=== PATIENT | female | born 1940 | race Caucasian/White ===

== ENCOUNTER 2016-08-28 19:52 | Inpatient (IN) | payer OTHER ==
[~2016-08-28] VITALS: Ht 167.6 cm; Wt 106.0 kg
[~2016-08-28 19:52] MED LIST: ALLEGRA180 MG PO; AMARYL4 MG PO; CITALOPRAM HBR40 MG PO; CLONAZEPAM1 MG PO; COUMADIN6 MG PO; FLONASE16 G1 BOTH NARES; K-DUR20 MEQ PO; LASIX80 MG PO; LOVASTATIN40 MG PO; MOBIC7.5 MG PO; MONOPRIL40 MG PO; PROTONIX40 MG PO; TIZANIDINE HCL4 MG PO; ULTRAM50 MG PO; WELLBUTRIN XL300 MG PO
[2016-08-28 21:10] LABS: HEMATOCRIT 47.7 % (36.0-46.0); MCH 29.2 PG (29.0-34.0); MCHC 33.1 G/DL (30.0-36.0); MEAN PLAT.VOLUME 10.3 uM^3 (9.5-12.4); PLATELET COUNT 342 K/uL (156-360); RBC DIS.WIDTH-CV 12.8 % (11.8-14.6); RBC DIS.WIDTH-SD 41.6 % (39-53); RED BLOOD COUNT 5.42 M/uL (3.80-5.20); WHITE BLOOD COUNT 11.5 K/uL (4.1-10.2)
[2016-08-28 21:36] LABS: PTT 52.8 (25-32)
[2016-08-28 21:43] LABS: INTER. NORMALIZED RATIO 5.8; PROTHROMBIN TIME 62.7 (9.2-11.2)
[2016-08-28 21:46] LABS: TROP-I INTERPRETATION NEGATIVE; TROPONIN-I < 0.01 ng/mL (0.0-0.30)
[2016-08-28 21:48] LABS: ANION GAP 16 MEQ/L (2-14); CHLORIDE 96 MEQ/L (99-109); GFR ESTIMATE (CALCULATED) 29 mL/min/; POTASSIUM 5.5 MEQ/L (3.7-5.4); SAMPLE HEMOLYSIS CHECK 0; SAMPLE ICTERIC CHECK 0; SAMPLE LIPEMIA CHECK 0; SODIUM 126 MEQ/L (136-147); UREA NITROGEN (BUN) 36 mg/dL (9-23)
[2016-08-28 21:57] LABS: GLUCOSE 549 mg/dL (70-99)
[2016-08-28] MEDS ORDERED: COUMADIN6 MG PO (22:26)
[2016-08-28] MEDS ORDERED: WELLBUTRIN XL150 MG PO (22:27)
[2016-08-28] MEDS ORDERED: CLONAZEPAM0.5 MG PO (22:27)
[2016-08-28] MEDS ORDERED: OMEPRAZOLE40 M1 PO (22:28)
[2016-08-28] MEDS ORDERED: ATORVASTATIN CA20 MG PO (22:29)
[2016-08-28] MEDS ORDERED: ADVAIR 100/501 DISK IH (22:29)
[2016-08-28] MEDS ORDERED: ALLEGRA ALLERG180 MG PO (22:29)
[2016-08-28] MEDS ORDERED: CENTRUM SILVER1 EAC4 PO (22:30)
[2016-08-28] MEDS ORDERED: CYANOCOBALAM1000 MCG PO (22:30)
[2016-08-28] MEDS ORDERED: METFORMIN HCL1000 MG PO (22:30)
[2016-08-28 23:42] LABS: ALKALINE PHOSPHATASE 71 IU/L (3-129); DIRECT BILIRUBIN 0.2 mg/dL (0.0-0.3)
[2016-08-29 00:06] LABS: BILIRUBIN NEGATIVE; BLOOD NEGATIVE; COLOR YELLOW ((YELLOW)); GLUCOSE (STRIP) >=500; KETONES 5; LEUKOCYTES NEGATIVE; NITRITE NEGATIVE; PROTEIN (STRIP) NEGATIVE; SPECIFIC GRAVITY 1.015 (1.000-1.030); UROBILINOGEN 0.2 MG/DL (0.2-1.0)
[2016-08-29 00:15] LABS: ADD MIUA? NO; UCUL ADDED? NO
[2016-08-29 00:57] LABS: CARBON DIOXIDE (BICARBONATE) 21.6 MEQ/L (20-31)
[2016-08-29 02:51] LABS: ANION GAP 10 MEQ/L (2-14); CHLORIDE 105 MEQ/L (99-109); GFR ESTIMATE (CALCULATED) 33 mL/min/; GLUCOSE 403 mg/dL (70-99); POTASSIUM 4.8 MEQ/L (3.7-5.4); SAMPLE HEMOLYSIS CHECK 0; SAMPLE ICTERIC CHECK 0; SAMPLE LIPEMIA CHECK 0; SODIUM 134 MEQ/L (136-147); UREA NITROGEN (BUN) 34 mg/dL (9-23)
[2016-08-29 03:26] VITALS: BP 129/72
[2016-08-29 05:39] LABS: TROP-I INTERPRETATION NEGATIVE; TROPONIN-I < 0.01 ng/mL (0.0-0.30)
[2016-08-29 05:47] LABS: ANION GAP 11 MEQ/L (2-14); CHLORIDE 104 MEQ/L (99-109); GFR ESTIMATE (CALCULATED) 33 mL/min/; GLUCOSE 384 mg/dL (70-99); POTASSIUM 5.1 MEQ/L (3.7-5.4); SAMPLE HEMOLYSIS CHECK 0; SAMPLE ICTERIC CHECK 0; SAMPLE LIPEMIA CHECK 0; SODIUM 132 MEQ/L (136-147); UREA NITROGEN (BUN) 33 mg/dL (9-23)
[2016-08-29 07:05] VITALS: BP 119/69
[2016-08-29 08:01] LABS: POINT-OF-CARE METER ID UU14174216
[2016-08-29 11:25] VITALS: BP 145/63
[2016-08-29 13:27] LABS: ANION GAP 11 MEQ/L (2-14); CHLORIDE 102 MEQ/L (99-109); POTASSIUM 4.9 MEQ/L (3.7-5.4); SAMPLE HEMOLYSIS CHECK 0; SAMPLE ICTERIC CHECK 0; SAMPLE LIPEMIA CHECK 0; SODIUM 131 MEQ/L (136-147)
[2016-08-29 13:37] LABS: TROP-I INTERPRETATION NEGATIVE; TROPONIN-I < 0.01 ng/mL (0.0-0.30)
[2016-08-29 13:47] LABS: GFR ESTIMATE (CALCULATED) 36 mL/min/; UREA NITROGEN (BUN) 34 mg/dL (9-23)
[2016-08-29 13:48] LABS: GLUCOSE 484 mg/dL (70-99)
[2016-08-29 16:21] LABS: POINT-OF-CARE METER ID UU14174216
[2016-08-29 17:48] VITALS: BP 120/57
[2016-08-29 18:48] LABS: ANION GAP 13 MEQ/L (2-14); CHLORIDE 103 MEQ/L (99-109); GFR ESTIMATE (CALCULATED) 39 mL/min/; GLUCOSE 278 mg/dL (70-99); POTASSIUM 4.6 MEQ/L (3.7-5.4); SAMPLE HEMOLYSIS CHECK 1; SAMPLE ICTERIC CHECK 0; SAMPLE LIPEMIA CHECK 0; SODIUM 132 MEQ/L (136-147); UREA NITROGEN (BUN) 33 mg/dL (9-23)
[2016-08-29 19:45] VITALS: BP 129/60
[2016-08-29 23:47] VITALS: BP 110/53
[2016-08-29 23:51] LABS: POINT-OF-CARE METER ID UU13113781
[2016-08-30 04:28] VITALS: BP 130/60
[2016-08-30 05:15] LABS: UR CREATININE CONCENTRATION 98.9 MG/DL
[2016-08-30 05:54] LABS: HEMATOCRIT 40.2 % (36.0-46.0); MCH 29.2 PG (29.0-34.0); MCHC 33.1 G/DL (30.0-36.0); MCV 88.2 FL (83-99); MEAN PLAT.VOLUME 10.2 uM^3 (9.5-12.4); PLATELET COUNT 318 K/uL (156-360); RBC DIS.WIDTH-SD 42.1 % (39-53); RED BLOOD COUNT 4.56 M/uL (3.80-5.20); WHITE BLOOD COUNT 6.8 K/uL (4.1-10.2)
[2016-08-30 06:03] LABS: ANION GAP 9 MEQ/L (2-14); CHLORIDE 106 MEQ/L (99-109); GFR ESTIMATE (CALCULATED) 39 mL/min/; GLUCOSE 247 mg/dL (70-99); POTASSIUM 4.2 MEQ/L (3.7-5.4); SAMPLE HEMOLYSIS CHECK 0; SAMPLE ICTERIC CHECK 0; SAMPLE LIPEMIA CHECK 0; SODIUM 135 MEQ/L (136-147); UREA NITROGEN (BUN) 36 mg/dL (9-23)
[2016-08-30 08:15] VITALS: BP 122/76
[2016-08-30 11:24] LABS: INTER. NORMALIZED RATIO 3.4; PROTHROMBIN TIME 35.6 (9.2-11.2)
[2016-08-30 12:00] VITALS: BP 97/53
[2016-08-30] MEDS ORDERED: COUMADIN4 MG PO (14:24)
[2016-08-30 16:00] VITALS: BP 121/53
[2016-08-30 19:05] VITALS: BP 112/52
[2016-08-30 20:43] LABS: POINT-OF-CARE USER ID ENVMNS
[2016-08-31 00:28] VITALS: BP 118/72
[2016-08-31 05:24] VITALS: BP 138/64
[2016-08-31 06:21] LABS: ANION GAP 8 MEQ/L (2-14); CHLORIDE 107 MEQ/L (99-109); GFR ESTIMATE (CALCULATED) 43 mL/min/; GLUCOSE 198 mg/dL (70-99); POTASSIUM 4.1 MEQ/L (3.7-5.4); SAMPLE HEMOLYSIS CHECK 0; SAMPLE ICTERIC CHECK 0; SAMPLE LIPEMIA CHECK 0; SODIUM 135 MEQ/L (136-147); UREA NITROGEN (BUN) 33 mg/dL (9-23)
[2016-08-31 06:50] LABS: INTER. NORMALIZED RATIO 2.1; PROTHROMBIN TIME 22.1 (9.2-11.2)
[2016-08-31 07:25] VITALS: BP 138/70
[2016-08-31 11:05] VITALS: BP 125/61
[2016-08-31] MEDS ORDERED: BENADRYL25 MG PO (13:03)
== END 2016-08-31 14:23 | disposition home health service (06) | DRG 682 ==
LOC: EME 19:52 → 4EAST 08-29 01:51 → EDOF 08-29 01:51 → 4EAST 08-29 02:54
PROVIDERS: Hospitalist; Internal Medicine; Internal Medicine Nephrology; Physician Assistant
DX: N17.8 Other acute kidney failure (principal); E13.10 Other specified diabetes mellitus with ketoacidosis without coma; I10 Essential (primary) hypertension; E86.0 Dehydration; E78.5 Hyperlipidemia, unspecified; F32.9 Major depressive disorder, single episode, unspecified; I73.9 Peripheral vascular disease, unspecified; K21.9 Gastro-esophageal reflux disease without esophagitis; Z86.711 Personal history of pulmonary embolism; T39.395A Adverse effect of other nonsteroidal anti-inflammatory drugs [NSAID], initial encounter; T36.0X5A Adverse effect of penicillins, initial encounter; L27.0 Generalized skin eruption due to drugs and medicaments taken internally; T38.0X5A Adverse effect of glucocorticoids and synthetic analogues, initial encounter; R07.89 Other chest pain; E66.9 Obesity, unspecified; Z68.35 Body mass index [BMI] 35.0-35.9, adult; D68.32 Hemorrhagic disorder due to extrinsic circulating anticoagulants; T45.515A Adverse effect of anticoagulants, initial encounter; M79.7 Fibromyalgia; N28.1 Cyst of kidney, acquired; K76.0 Fatty (change of) liver, not elsewhere classified; Z79.01 Long term (current) use of anticoagulants; Z86.73 Personal history of transient ischemic attack (TIA), and cerebral infarction without residual deficits; Z79.4 Long term (current) use of insulin
CPT/HCPCS: 71020; 76770; 80048; 80048 91; 80069; 80076; 81003; 82010; 82570; 82803; 82948; 84300; 84484; 85027; 85610; 85730; 89190; 93005; 94640; 94640 76; 99281; 99285; J1200; J1815; J2930; J7030; J7512; S0028